=== PATIENT | male | born 1930 | race Caucasian/White ===

== ENCOUNTER 2017-03-14 07:22 | Day surgery (SDC) | payer MEDICARE, BC ==
[~2017-03-14 07:22] MED LIST: Cefuroxime 10 MG/ML SYRINGE EYERT SCH; Lidocaine 1% PF 2 ML SDV INJECT SCH; Pilocarpine 4% Ophth Soln 15 ML Bot EYERT SCH
[2017-03-14] MEDS: Polymyxin B/Trimethoprim 10 ML Bottle EYERT SCH ×3 (07:37→09:01)
[2017-03-14] MEDS: Brimonidine 0.2% Ophth Soln 5 ML Bottle EYERT SCH ×3 (07:41→09:01)
[2017-03-14] MEDS: Phenylephrine 2.5% Ophth Soln 2 ML Bot EYERT SCH ×5 (07:44→08:39)
--- NOTE | 2017-03-14 08:16 | PCM.PREANE ---
Preanesthetic Assessment - Anesthesia/Transfusion/Family Hx Anesthesia History: Prior Anesthesia Without Reaction Family History of Anesthesia Reaction: No Transfusion History: No Prior Transfusion(s) - Review of Systems General: No Symptoms Pulmonary: No Symptoms Cardiovascular: Dyspnea on Exertion Gastrointestinal: No Symptoms Neurological: No Symptoms Other: Reports: Diabetes - Physical Assessment NPO Status Date: 03/13/17 NPO Status Time: 18:00 Pulse: 67 O2 Sat by Pulse Oximetry: 95 Respiratory Rate: 16 Blood Pressure: 165/64 Temperature: 36.4 C Vital Signs: Last Vital Signs Temp 36.4 C 03/14/17 07:25 Pulse 67 03/14/17 07:25 Resp 16 03/14/17 07:25 BP 165/64 H 03/14/17 07:25 Pulse Ox 95 03/14/17 07:25 Height: 1.73 m Weight: 68.039 kg ASA Class: 3 Mental Status: Alert & Oriented x3 Airway Class: Mallampati = 2 Dentition: Reports: [place](s) Thyro-Mental Finger Breadths: 3 Mouth Opening Finger Breadths: 2 ROM/Head Extension: Limited/Partial Lungs: Clear to Auscultation, Normal Respiratory Effort Cardiovascular: Regular Rate, Regular Rhythm - Allergies Allergies/Adverse Reactions: Allergies Allergy/AdvReac Type Severity Reaction Status Date / Time No Known Allergies Allergy Verified 03/13/17 14:19 - Blood Blood Available: No Product(s) Available: None - Anesthesia Plan Pre-Op Medication Ordered: Beta Mookie Beta Mookie: Metoprolol Med Last Dose Date: 03/14/17 Med Last Dose Time: 07:30 - Acknowledgements Anesthesia Type Planned: MAC Pt an Appropriate Candidate for the Planned Anesthesia: Yes Alternatives and Risks of Anesthesia Discussed w Pt/Guardian: Yes Pt/Guardian Understands and Agrees with Anesthesia Plan: Yes PreAnesthesia Questionnaire - HOME MEDS Home Medications: Home Meds Ascorbic Acid [Vitamin C] 1,000 mg PO DAILY 03/13/17 [History] Aspirin [Tye Chewable Aspirin] 81 mg PO DAILY 03/13/17 [History] Famotidine 20 mg PO DAILY PRN 03/13/17 [History] Lisinopril/Hydrochlorothiazide [Lisinopril-Hctz 20-12.5 mg Tab] 1 tab PO DAILY 03/13/17 [History] Metoprolol Tartrate 25 mg PO BID 03/13/17 [History] Vit A/C/E AC/Znox/Cupric Oxide [Eye Vitamin-Minerals Tablet] 1 tab PO DAILY [History] Vitamin B Complex 1 cap PO DAILY 03/13/17 [History] atorvaSTATin Calcium [Atorvastatin Calcium] 80 mg PO DAILY 03/13/17 [History] metFORMIN [Glucophage XR] 500 mg PO DAILY 03/13/17 [History] - CURRENT (IN HOUSE) MEDS Current Meds: Current Medications Brimonidine Tartrate (Alphagan 0.2% Ophth Soln) 0 ml EYERT ASDIRECTED LIT Stop: 03/14/17 18:00 Last Admin: 03/14/17 07:41 Dose: 1 drop Cefuroxime Sodium (Zinacef) 0 mg EYERT ASDIRECTED LIT Stop: 03/14/17 18:00 Lidocaine HCl (Xylocaine-Mpf 1%) 10 ml INJECT ASDIRECTED LIT Stop: 03/14/17 18:00 Phenylephrine HCl (Doe-Synephrine 2.5% Ophth Soln) 0 ml EYERT ASDIRECTED LIT Stop: 03/14/17 18:00 Last Admin: 03/14/17 07:59 Dose: 1 drop Pilocarpine HCl (Pilocar 4% Ophth Soln) 0 ml EYERT ASDIRECTED LIT Stop: 03/14/17 18:00 Polymyxin/Trimethoprim Sulfate (Polytrim Ophth Soln) 0 ml EYERT ASDIRECTED LIT Stop: 03/14/17 18:00 Last Admin: 03/14/17 08:07 Dose: 1 drop Tetracaine HCl (Tetracaine 0.5% Steri-Unit Linnea) 0 ml EYERT ASDIRECTED LIT Stop: 03/14/17 18:00 Tropicamide (Mydriacyl 1% Ophth Soln) 0 ml EYERT ASDIRECTED LIT Stop: 03/14/17 18:00 Last Admin: 03/14/17 08:03 Dose: 1 drop
[2017-03-14] MEDS: Tetracaine HCl/PF 0.5% 4 ML Bottle EYERT SCH ×2 (08:27→08:52)
--- NOTE | 2017-03-14 09:02 | PCM48HPAN ---
Post Anesthesia Note - EVALUATION WITHIN 48HRS OF ANESTHETIC Vital Signs in Normal Range: Yes Patient Participated in Evaluation: Yes Respiratory Function Stable: Yes Airway Patent: Yes Cardiovascular Function Stable: Yes Hydration Status Stable: Yes Pain Control Satisfactory: Yes Nausea and Vomiting Control Satisfactory: Yes Mental Status Recovered: Yes
[2017-03-14 09:14] VITALS: BP 129/69
== END 2017-03-14 09:13 | disposition home or self-care (01) ==
LOC: JD.SDS 07:22
PROVIDERS: ATTEND Ophthalmology
PROC: 08RJ3JZ Replacement of Right Lens with Synthetic Substitute, Percutaneous Approach (ICD-10-PCS; principal; 2017-03-14)
DX: H25.813 Combined forms of age-related cataract, bilateral (principal); H35.363 Drusen (degenerative) of macula, bilateral; H35.3131 Nonexudative age-related macular degeneration, bilateral, early dry stage; H02.834 Dermatochalasis of left upper eyelid; H02.831 Dermatochalasis of right upper eyelid; E11.9 Type 2 diabetes mellitus without complications; E78.5 Hyperlipidemia, unspecified; C67.9 Malignant neoplasm of bladder, unspecified; I10 Essential (primary) hypertension; Z90.89 Acquired absence of other organs; Z95.0 Presence of cardiac pacemaker; Z98.890 Other specified postprocedural states; Z87.891 Personal history of nicotine dependence; Z79.82 Long term (current) use of aspirin; Z79.84 Long term (current) use of oral hypoglycemic drugs; Z79.899 Other long term (current) drug therapy
CPT/HCPCS: 66984; A9270; C1780; J0697